=== PATIENT | female | born 1945 | race African-American/Black ===

== ENCOUNTER 2018-06-10 04:13 | Inpatient (IN) | payer OTHER ==
[~2018-06-10] VITALS: Ht 154.9 cm; Wt 40.8 kg
[2018-06-10] MEDS ORDERED: ZOFRAN ODT4 MG PO (05:07)
[2018-06-10] MEDS ORDERED: PROTONIX40 MG PO (05:07)
== END 2018-06-12 15:42 | disposition left against medical advice (07) | DRG 378 ==
LOC: ER 04:13 → MEDI 10:33 → SEC-K 10:33 → MEDI 14:12
PROC: 30233N1 Transfusion of Nonautologous Red Blood Cells into Peripheral Vein, Percutaneous Approach (ICD-10-PCS; principal; 2018-06-10)
PROC: 4A033R1 Measurement of Arterial Saturation, Peripheral, Percutaneous Approach (ICD-10-PCS; 2018-06-10)
PROC: 3E0336Z Introduction of Nutritional Substance into Peripheral Vein, Percutaneous Approach (ICD-10-PCS; 2018-06-10)
DX: K92.1 Melena (principal); D62 Acute posthemorrhagic anemia; R64 Cachexia; C18.8 Malignant neoplasm of overlapping sites of colon; C79.89 Secondary malignant neoplasm of other specified sites; N39.0 Urinary tract infection, site not specified; K92.0 Hematemesis; E86.0 Dehydration; I95.89 Other hypotension; B96.29 Other Escherichia coli [E. coli] as the cause of diseases classified elsewhere